=== PATIENT | female | born 1960 | race Caucasian/White ===

== ENCOUNTER 2018-05-02 09:50 | Day surgery (SDC) | payer MEDICARE ==
[~2018-05-02] VITALS: Ht 160 cm; Wt 69.4 kg
[~2018-05-02 09:50] MED LIST: AMIT50 PO; ATOR40TA PO; Amitriptyline H10 MG PO; ESOM20; ESTNOR; Esgic Tablet1 EACH PO; LIDO5TP TOP; Multivitamin1 EAC1; Norco 5-325 Ta1 EACH PO; Percocet 5-3251 EACH PO; RIZATRIPTAN5 M1; Robaxin-750750 MG PO; TOPI50; Treximet 85-501 EACH; ZOLP5 PO; Zofran8 MG PO
[2018-05-02] MEDS ORDERED: PROGESTERONE100 MG PO (10:38)
== END 2018-05-02 12:41 | disposition home or self-care (01) ==
LOC: ORSCSDS 09:50
PROVIDERS: Orthopaedic Surgery
PROC: 01N54ZZ Release Median Nerve, Percutaneous Endoscopic Approach (ICD-10-PCS; principal; 2018-05-02 11:15)
DX: G56.02 Carpal tunnel syndrome, left upper limb (principal)
CPT/HCPCS: J0690; J2250; J3010; J7120

== ENCOUNTER 2020-02-09 13:56 | Emergency (ER) | payer MEDICARE ==
[~2020-02-09] VITALS: Ht 160 cm; Wt 68.0 kg
[~2020-02-09 13:56] MED LIST changes: +Amitriptyline H50 MG PO; +MIRALAX17 GM PO; +MULTI-DAY PLUS1 EAC1 PO; +Omeprazole20 M1 PO; +PROGESTERONE100 MG PO; +VITAMIN D PO
[2020-02-09 14:59] LABS: BASOPHILS ABSOLUTE AUTO 0.04 K/mm3 (0.00-0.23); BASOPHILS PERCENT AUTO 0 % (0-2); EOSINOPHILS ABSOLUTE AUTO 0.02 K/mm3 (0.00-0.68); EOSINOPHILS PERCENT AUTO 0 % (0-6); Hematocrit 44.9 % (33.0-51.0); Hemoglobin 14.8 g/dL (11.5-16.0); IMMATURE GRAN ABSOLUTE AUTO 0.03 K/mm3 (0.00-0.10); IMMATURE GRAN PERCENT AUTO 0 % (0-1); LYMPHOCYTES ABSOLUTE AUTO 2.34 K/mm3 (0.84-5.20); LYMPHOCYTES PERCENT AUTO 22 % (21-46); MONOCYTES ABSOLUTE AUTO 0.73 K/mm3 (0.16-1.47); MONOCYTES PERCENT AUTO 7 % (4-13); Mean Corpuscular Volume 94 fL (80-100); Mean Platelet Volume 11.2 fL (9.1-12.4); NEUTROPHILS ABSOLUTE AUTO 7.67 K/mm3 (1.96-9.15); NEUTROPHILS PERCENT AUTO 71 % (41-73); Platelet Count 232 K/mm3 (150-400); RDW Coefficient Variation 11.9 % (11.7-14.2); RDW Standard Deviation 41.8 fL (35.1-46.3); Red Blood Cell Count 4.78 M/mm3 (3.80-5.20); White Blood Cell Count 10.83 K/mm3 (4.00-11.30)
[2020-02-09 15:04] LABS: Source, Urine Clean Catch
[2020-02-09 15:18] LABS: Alanine Aminotransfer (ALT/SGP 25 U/L (12-78); Albumin, Blood 4.3 g/dL (3.4-5.0); Albumin/Globulin Ratio 1.3 (0.8-1.8); Alk Phos 85 U/L (50-136); Anion Gap 7 mmol/L (6-16); Aspartate Aminotrans (AST/SGOT 18 U/L (12-37); Bilirubin, Total 0.6 mg/dL (0.1-1.0); Blood Urea Nitrogen 9 mg/dL (8-24); Bun/Creatinine Ratio 11.5 (12.0-20.0); CO2, Blood 25 mmol/L (21-32); Calcium, Blood 9.1 mg/dL (8.5-10.1); Chloride, Blood 108 mmol/L (98-108); Creatinine, Blood 0.78 mg/dL (0.40-1.00); Ethanol (Alcohol), Blood, Med <3 mg/dL; Globulin, Blood 3.4 g/dL (2.2-4.0); Glomerular Filtration Rate >60 (60-); Glucose, Blood 92 mg/dL (70-99); Potassium, Blood 3.7 mmol/L (3.5-5.5); Salicylate <1.7 mg/dL (2.8-20.0); Sodium, Blood 140 mmol/L (136-145); Total Protein, Blood 7.7 g/dL (6.4-8.2)
[2020-02-09 15:18] LABS: Bilirubin, Urine Neg (Neg); Blood, Urine Neg (Neg); Glucose Qualitative, Urine Neg (Neg); Ketones, Urine 2+ (Neg); Leukocyte Esterase, Urine Neg (Neg); Nitrite, Urine Neg (Neg); Protein, Urine Neg (Neg); Urobilinogen, Urine NORM (Normal)
[2020-02-09 15:21] LABS: Acetaminophen, Random <2.0 ug/mL (10.0-30.0)
[2020-02-09 15:31] LABS: U Amphetamine Screen Not Detected; U Barbituate Screen Not Detected; U Benzodiazapine Screen Not Detected; U Buprenorphine Screen Not Detected; U Cannabinoids Screen Not Detected; U Cocaine Screen Not Detected; U Methadone Screen Not Detected; U Methamphetamine Screen Not Detected; U Opiates Screen Not Detected; U Oxycodone Screen Not Detected; U Phencyclidine Screen Not Detected; U Propoxyphene Screen Not Detected
[2020-02-09 15:37] LABS: Appearance, Urine Clear (Clear); Color, Urine Yellow (P-Yellow)
== END 2020-02-09 19:16 | disposition home or self-care (01) ==
LOC: ER 13:56
PROVIDERS: Physician Assistant
DX: F32.9 Major depressive disorder, single episode, unspecified (principal); K21.9 Gastro-esophageal reflux disease without esophagitis; E78.5 Hyperlipidemia, unspecified; J45.909 Unspecified asthma, uncomplicated; Z87.891 Personal history of nicotine dependence; Z79.899 Other long term (current) drug therapy
CPT/HCPCS: 36415; 80053; 81003; 85025; 99285; G0480; Q3014

== ENCOUNTER 2020-07-26 12:18 | Day surgery (SDC) | payer MEDICARE ==
[~2020-07-26] VITALS: Ht 162.6 cm; Wt 68.5 kg
[~2020-07-26 12:18] MED LIST changes: +AIMOVIG AU140 MG/1 M SC; +Erythromycin 2%30 GM; +MELATONIN PO; +NARA2.5 PO; +OMEP20ER PO; +PROG100 PO; +PROM25 PO; +SERT25 PO; +TEMOVATE15 G1
== END 2020-07-26 14:45 | disposition home or self-care (01) ==
LOC: ORSCSDS 12:18
PROVIDERS: Podiatrist Foot & Ankle Surgery
PROC: 0SBL0ZZ Excision of Left Tarsometatarsal Joint, Open Approach (ICD-10-PCS; principal; 2020-07-26 13:45)
PROC: 0JNR0ZZ Release Left Foot Subcutaneous Tissue and Fascia, Open Approach (ICD-10-PCS; principal; 2020-07-26 13:45)
DX: M72.2 Plantar fascial fibromatosis (principal); M67.472 Ganglion, left ankle and foot; K21.9 Gastro-esophageal reflux disease without esophagitis; Z87.891 Personal history of nicotine dependence; J45.909 Unspecified asthma, uncomplicated; Z79.899 Other long term (current) drug therapy
CPT/HCPCS: J0171; J0690; J1100; J2250; J2405; J2704; J3010; J7120